=== PATIENT | male | born 1965 | race Caucasian/White ===

== ENCOUNTER → 2024-09-15 | Outpatient (CLI) | payer MEDICAID ==
[~2024-09-15] VITALS: Ht 177.8 cm; Wt 179.7 kg
[~2024-09-15] MED LIST: ALPR2TAB7 PO; AMIO200T68 PO; APIX5TAB PO; ATOR-2 PO; ERGO500093 PO; GABA-529 PO; HYDR-4068 PO; LINA145C PO; METO-391 PO
[2024-09-15 12:23] LABS: BASOPHILS # (AUTO) 0.08 K/uL (0.00-0.20); BASOPHILS % (AUTO) 0.9 % (0.0-5.0); EOSINOPHILS # (AUTO) 0.44 K/uL (0.00-0.70); EOSINOPHILS % (AUTO) 4.7 % (0.0-8.0); HEMATOCRIT 43.7 % (42-54); IMMATURE GRANULOCYTE ABSOLUTE 0.09 K/uL (0-1); LYMPHOCYTES # (AUTO) 2.2 K/uL (1.0-4.8); LYMPHOCYTES % (AUTO) 23.3 % (21.0-51.0); MEAN CORPUSCULAR HEMOGLOBIN 31.2 pg (27.0-33.0); MEAN CORPUSCULAR HGB CONC 31.8 g/dL (32.0-36.0); MONOCYTES # (AUTO) 0.8 K/uL (0.1-1.0); MONOCYTES % (AUTO) 8.7 % (3.0-13.0); NEUTROPHILS # (AUTO) 5.8 K/uL (1.8-7.7); NEUTROPHILS % (AUTO) 61.4 % (40.0-77.0); PLATELET COUNT (AUTO) 231 K/uL (130-400); RED BLOOD CELL COUNT(AUTO) 4.46 MIL/uL (4.50-6.20); RED CELL DISTRIBUTION WIDTH 14.3 % (11.0-15.5); WHITE BLOOD COUNT (AUTO) 9.4 K/uL (4.8-10.8)
[2024-09-15 12:29] LABS: INR 0.99 (0.85-1.15); PROTHROMBIN TIME 10.7 SEC (9.6-11.6)
[2024-09-15 12:30] LABS: POTASSIUM 4.5 mmol/L (3.5-5.1)
[2024-09-15 12:31] LABS: PARTIAL THROMBOPLASTIN TIME 30.8 SEC (26.3-35.5)
[2024-09-15 12:52] VITALS: BP 150/89; PULSE 51; RESP 19; TEMP 97.8
--- NOTE | 2024-09-17 08:16 | EKG ---
[facility] Test Date: 2024-09-15 Test Time: 12:03:51 Pat Name: TABITHA DE JESUS Department: [facility] Room: Gender: M Learning Services Coordinator: [id number] : 1965 Requested By: DIANNA KIM Order Number: [id number] Reading MD: Remy Rubio Measurements Intervals [place] Rate: 50 P: 38 CO: 204 QRS: 32 QRSD: 160 T: 22 QT: 482 QTc: 440 Interpretive Statements Sinus rhythm Borderline prolonged CO interval Right bundle branch block No previous ECG available for comparison Electronically Signed On 09-18-2024 15:00:37 RADAR SYSTEMS ENGINEER by Remy Rubio Please click the below link to view image of tracing.
== END | disposition home or self-care (01) ==
LOC: EDSTATUS 09:00 → DAH 10:00
PROVIDERS: ATTEND Internal Medicine Cardiovascular Disease
DX: Z01.812 Encounter for preprocedural laboratory examination (principal); Z01.818 Encounter for other preprocedural examination; I48.0 Paroxysmal atrial fibrillation; I48.4 Atypical atrial flutter; I45.10 Unspecified right bundle-branch block; Z53.8 Procedure and treatment not carried out for other reasons
CPT/HCPCS: 36415; 80048; 85025; 85610; 85730; 93005

== ENCOUNTER → 2024-10-17 | Outpatient (CLI) | payer MEDICAID ==
[~2024-10-17] VITALS: Ht 177.8 cm; Wt 177.1 kg
[2024-10-17 14:56] LABS: BASOPHILS # (AUTO) 0.08 K/uL (0.00-0.20); BASOPHILS % (AUTO) 0.6 % (0.0-5.0); EOSINOPHILS # (AUTO) 0.29 K/uL (0.00-0.70); EOSINOPHILS % (AUTO) 2.3 % (0.0-8.0); HEMATOCRIT 48.8 % (42-54); LYMPHOCYTES # (AUTO) 2.2 K/uL (1.0-4.8); LYMPHOCYTES % (AUTO) 16.9 % (21.0-51.0); MEAN CORPUSCULAR HEMOGLOBIN 31.2 pg (27.0-33.0); MEAN CORPUSCULAR HGB CONC 31.4 g/dL (32.0-36.0); MEAN CORPUSCULAR VOLUME 99.4 fL (79-99); MONOCYTES % (AUTO) 7.4 % (3.0-13.0); NEUTROPHILS # (AUTO) 9.2 K/uL (1.8-7.7); NEUTROPHILS % (AUTO) 71.2 % (40.0-77.0); PLATELET COUNT (AUTO) 247 K/uL (130-400); RED BLOOD CELL COUNT(AUTO) 4.91 MIL/uL (4.50-6.20); RED CELL DISTRIBUTION WIDTH 14.6 % (11.0-15.5); WHITE BLOOD COUNT (AUTO) 12.9 K/uL (4.8-10.8)
[2024-10-17 15:06] LABS: CREATININE 1.1 mg/dL (0.5-1.3); POTASSIUM 4.5 mmol/L (3.5-5.1)
[2024-10-17 15:09] LABS: INR 1.01 (0.85-1.15); PROTHROMBIN TIME 10.9 SEC (9.6-11.6)
[2024-10-17 15:10] LABS: PARTIAL THROMBOPLASTIN TIME 30.9 SEC (26.3-35.5)
--- NOTE | 2024-10-17 15:25 | EKG ---
[facility] Test Date: 2024-10-17 Test Time: 15:44:20 Pat Name: TABITHA DE JESUS Department: [facility] Room: Gender: M Shallot Packer: [id number] : 1965 Requested By: DIANNA KIM Order Number: [id number] Reading MD: Kushal Ricci Measurements Intervals [place] Rate: 52 P: 36 RI: 192 QRS: -5 QRSD: 158 T: 14 QT: 480 QTc: 446 Interpretive Statements Sinus rhythm Right bundle branch block Inferior infarct, old Compared to ECG 09/15/2024 12:03:51 Myocardial infarct finding now present Electronically Signed On 10-17-2024 19:20:31 RN TELEMETRY by Kushal Ricci Please click the below link to view image of tracing.
[2024-10-17 15:51] VITALS: BP 149/79; PULSE 56; RESP 18; TEMP 97.4
--- NOTE | 2024-10-18 09:27 | NUR ---
REPORT REPORTED WBC TO ADRIAN LYNN. RECEIVED ORDERS TO REPEAT CBC IN AM.
== END | disposition home or self-care (01) ==
LOC: DAH 10:00 → EDSTATUS 10-19 07:00
PROVIDERS: ATTEND Internal Medicine Cardiovascular Disease
DX: Z01.818 Encounter for other preprocedural examination (principal); I45.10 Unspecified right bundle-branch block; I48.4 Atypical atrial flutter; I48.0 Paroxysmal atrial fibrillation; I21.9 Acute myocardial infarction, unspecified
CPT/HCPCS: 36415; 80048; 85025; 85610; 85730; 93005